=== PATIENT | male | born 1970 | race Caucasian/White ===

== ENCOUNTER 2016-12-05 14:30 | Emergency (ER) | payer OTHER ==
[~2016-12-05] VITALS: Ht 182.9 cm; Wt 137.0 kg
[2016-12-05 14:33] VITALS: Ht 182.9 cm; Wt 137.0 kg
[2016-12-05] MEDS ORDERED: GABA-526 PO (14:57)
[2016-12-05] MEDS ORDERED: BUPR-75 PO (14:58)
[2016-12-05] MEDS ORDERED: TRAZ100T15 PO (14:58)
[2016-12-05] MEDS ORDERED: CLON2TAB3 PO (14:59)
[2016-12-05] MEDS ORDERED: SOD CHLORIDE 0.9% 1,000 ML IV STA (15:25)
[2016-12-05] MEDS ORDERED: HYDROmorphONE 1 MG/ML SYG IV STA (15:25)
[2016-12-05] MEDS ORDERED: ONDANSETRON 4 MG INJ IV STA (15:25)
[2016-12-05 15:37] LABS: ADD SCAN DIFF NO
[2016-12-05 15:41] LABS: BASOPHILS % 0.3 % (0.0-2.0); EOSINOPHILS # 0.1 10^3/ul (0.0-0.5); EOSINOPHILS % 0.8 % (0.0-7.0); HEMATOCRIT 40.3 % (42.0-52.0); HEMOGLOBIN 14.9 g/dl (14.0-18.0); LYMPHOCYTES # 1.9 10^3/ul (0.8-2.9); LYMPHOCYTES % 31.7 % (15.0-51.0); MEAN CORPUSCULAR HEMOGLOBIN 36.2 pg (29.0-33.0); MEAN CORPUSCULAR VOLUME 97.8 fl (82.0-101.0); MEAN PLATELET VOLUME 9.7 fl (7.4-10.4); MONOCYTE # 0.4 10^3/ul (0.3-0.9); MONOCYTES % 6.8 % (0.0-11.0); NEUTROPHIL # 3.6 10^3/ul (1.6-7.5); NEUTROPHILS % 60.2 % (39.0-77.0); PLATELET COUNT 195 10^3/UL (140-415); RED BLOOD COUNT 4.12 10^6/ul (4.70-6.10); RED CELL DISTRIBUTION WIDTH 12.6 % (11.5-14.5)
[2016-12-05 15:44] LABS: INR 0.95; PROTIME 12.7 Sec (12.2-14.2)
--- NOTE | 2016-12-05 16:06 | RADRPT ---
PROCEDURE: CT Abdomen and Pelvis without contrast. CLINICAL INDICATION: Abdominal pain TECHNIQUE: CT scan of the abdomen and pelvis was performed on a multidetector high-resolution CT s canner without intravenous contrast. Coronal and sagittal reformatted images were obtained from the axial source images. Images were reviewed on a high-resolution PACS workstation. The total exam CTD I equals 24mGy and the total exam DLP equals 1396mGy-cm. One or more of the following dose reduction techniques were used: Automated exposure control, Adjustment of the mA and/or kV according to patie nt size, and/or use of iterative reconstruction technique. COMPARISON: None. FINDINGS: Evaluation of the solid organs is limited given the lack of intravenous contrast administration. The left subpleural atelectasis/scarring. Hypoattenuation of the liver. Status post cholecystectomy. No evidence of biliary dilatation. No pancreatic ductal dilatation. The spleen and adrenals are unremarkable. Retroperitoneal surgical c lips are seen. 4 mm hyperdense structure in the right kidney identified. No hydronephrosis. No dennis al or ureteral stone. No bowel obstruction. Appendix not visualized. There is wide-based laxity of the anterior abdomina l wall/ventral hernia with protrusion of the intra-abdominal fat anteriorly. The anterior abdominal wall defect measures 1.9 x 1.6 cm. No significant retroperitoneal lymphadenopathy, ascites or evidence of pneumoperitoneum. Fat containing left inguinal hernia. IMPRESSION: There is wide-based laxity of the anterior abdominal wall/ventral hernia with protrusion of the intr a-abdominal fat anteriorly. The anterior abdominal wall defect measures 1.9 x 1.6 cm. No evidence of bowel obstruction. 4 mm hyperdense structure in the right kidney may represent calcification or small hemorrhagic cyst. No renal or ureteral stone identified. No evidence of hydronephrosis. Hepatic steatosis. Status post cholecystectomy with extensive retroperitoneal surgical clips. Recommend correlation wit h surgical history. Fat containing left inguinal hernia. RPTAT: AA .Marcel Lazo MD, Date Time Electronically viewed and signed by .Marcel Lazo MD, MD on 12/05/2016 16:05 .T/
[2016-12-05 16:08] LABS: ALBUMIN 4.4 g/dl (3.3-4.9); ALBUMIN/GLOBULIN RATIO 1.1; BILIRUBIN,INDIRECT 0.9 mg/dl (0-1.1); BILIRUBIN,TOTAL 0.9 mg/dl (0.2-1.3); CALCIUM 9.3 mg/dl (8.4-10.2); CREATININE 0.79 mg/dl (0.61-1.24); POTASSIUM 3.9 mmol/L (3.5-5.1); TOTAL PROTEIN 8.4 g/dl (6.1-8.1)
[2016-12-05] MEDS ORDERED: OXYC-279 PO (16:40)
[2016-12-05] MEDS ORDERED: ONDA4TAB8 PO (16:40)
[2016-12-05] MEDS ORDERED: IBUP-1542 PO (16:40)
--- NOTE | 2016-12-05 21:34 | ERD ---
ER Documentation Chief Complaint Date/Time DATE: 12/05/16 TIME: 21:27 Chief Complaint "diffuse abdominal pain for past 4 days, -n/v/d, abdominal mesh 2 years ago HPI 46-year-old man complains of hypogastric abdominal pain for the last 4 days, he is status post herniorrhaphy and mesh placement many years ago. He denies fevers or chills, no hematuria, no weight loss, no melena or blood per rectum, no complaints of chest pain or shortness of breath. ROS All systems reviewed and are negative except as per history of present illness. Medications Home Meds Active Scripts Ondansetron Hcl* (Zofran*) 4 Mg Tablet, 4 MG PO Q8H Y for NAUSEA AND/OR VOMITING , #12 TAB Prov:EDUARDO MACK MD 12/05/16 Ibuprofen* (Ibuprofen*) 600 Mg Tablet, 600 MG PO Q8 for PAIN AND/OR INFLAMMATION , #30 TAB Prov:EDUARDO MACK MD 12/05/16 Oxycodone HCl/Acetaminophen (Percocet 5-325 mg Tablet) 1 Each Tablet, 1 EACH PO TID for PAIN LEVEL 6-10, #9 TAB Prov:EDUARDO MACK MD 12/05/16 Reported Medications Clonazepam* (Clonazepam*) 2 Mg Tablet, 2 MG PO BID, TAB 12/05/16 Trazodone Hcl* (Trazodone Hcl*) 100 Mg Tablet, 100 MG PO QHS, #30 TAB 12/05/16 Bupropion Hcl* (Wellbutrin XL*) 150 Mg Tab.sr.24h, 150 MG PO DAILY, TAB.SA 12/05/16 Gabapentin* (Gabapentin*) 600 Mg Tablet, 600 MG PO TID, #90 TAB 12/05/16 Allergies Allergies: Coded Allergies: No Known Allergy (Unverified , 12/05/16) PMhx/Soc Obesity, anxiety, herniorrhaphy with mesh placement History of Surgery: Yes (testicular CA, hernia repair with mesh , gall bladder) Hx Neurological Disorder: No Hx Respiratory Disorders: No Hx Cardiac Disorders: No Hx Alcohol Use: No Hx Substance Use: No Hx Tobacco Use: No Smoking Status: Never smoker FmHx Family History: No diabetes Physical Exam Vitals Vital Signs Date Time Temp Pulse Resp B/P Pulse Ox O2 Delivery O2 Flow Rate FiO2 12/05/16 14:33 97.6 98 18 131/78 97 Physical Exam GENERAL: Well-developed, well-nourished, in moderate pain, afebrile HEENT: Moist mucous membranes, pink conjunctiva, no cervical spine tenderness or step-off deformities, no goiter, no jaundice or icterus, extraocular movements intact without pain. No submandibular induration, and no pharyngeal erythema NEURO: Alert and oriented 3, cranial nerves II through XII intact bilaterally, pupils equal round reactive to light, no focal deficits or facial asymmetry, sensation intact distally Strength 5/5 in upper and lower extremities bilaterally CARDIAC: Regular rate and rhythm, no murmurs rubs or gallops LUNGS: Clear bilaterally no wheezing crackles or stridor ABDOMEN: Soft, protuberant abdomen with evidence of right mid abdominal hernia superficially tender to touch without guarding or rigidity SKIN: Warm and dry to touch, no abrasions, contusions, or hematomas, no lacerations, no ecchymosis, no target lesions, and without ulcers EXTREMITIES: No clubbing cyanosis or edema, calves are bilaterally symmetrical, no Homans sign, no popliteal cord sign. Distal pulses equal and bilateral PSYCH: Normal affect without agitation or irritability Result Diagram: 12/05/16 1300 12/05/16 1300 Results 24 hrs Laboratory Tests Test 12/05/16 13:00 White Blood Count 6.010^3/ul Red Blood Count 4.1210^6/ul Hemoglobin 14.9g/dl Hematocrit 40.3% Mean Corpuscular Volume 97.8fl Mean Corpuscular Hemoglobin 36.2pg Mean Corpuscular Hemoglobin Concent 37.0g/dl Red Cell Distribution Width 12.6% Platelet Count 10194^3/UL Mean Platelet Volume 9.7fl Neutrophils % 60.2% Lymphocytes % 31.7% Monocytes % 6.8% Eosinophils % 0.8% Basophils % 0.3% Nucleated Red Blood Cells % 0.0/100WBC Neutrophils # 3.610^3/ul Lymphocytes # 1.910^3/ul Monocytes # 0.410^3/ul Eosinophils # 0.110^3/ul Basophils # 0.010^3/ul Nucleated Red Blood Cells # 0.010^3/ul Prothrombin Time 12.7Sec Prothrombin Time Ratio 1.0 INR International Normalized Ratio 0.95 Sodium Level 141mmol/L Potassium Level 3.9mmol/L Chloride Level 110mmol/L Carbon Dioxide Level 24mmol/L Anion Gap 11 Blood Urea Nitrogen 9mg/dl Creatinine 0.79mg/dl Glucose Level 169mg/dl Calcium Level 9.3mg/dl Total Bilirubin 0.9mg/dl Direct Bilirubin 0.00mg/dl Indirect Bilirubin 0.9mg/dl Aspartate Amino Transf (AST/SGOT) 44IU/L Alanine Aminotransferase (ALT/SGPT) 85IU/L Alkaline Phosphatase 98IU/L Total Protein 8.4g/dl Albumin 4.4g/dl Globulin 4.00g/dl Albumin/Globulin Ratio 1.10 Lipase 47U/L Current Medications Medications (Trade) Dose Ordered Sig/Trice Route PRN Reason Start Time Stop Time Status Last Admin Dose Admin Sodium Chloride (NS) 1,000 ml @ 1,000 mls/hr Q1H STAT IV 12/05/16 15:25 12/05/16 16:24 DC 12/05/16 15:39 Hydromorphone HCl (Dilaudid) 1 mg ONCE STAT IV 12/05/16 15:25 12/05/16 15:26 DC 12/05/16 15:39 Ondansetron HCl (Zofran Inj) 4 mg ONCE STAT IV 12/05/16 15:25 12/05/16 15:26 DC 12/05/16 15:39 Procedures/MDM IV line was established patient was placed on residential monitor rhythm strip revealed a sinus rhythm at about 80 bpm with upright P and T waves. Patient was afebrile. I administered 1 L normal saline intravenously and hydromorphone 1 mg IV as well as Zofran [address] scan of the abdomen and pelvis was performed there was no bowel obstruction although there was a fat-containing hernia protrusion through the mesh. Please refer to radiologist dictation for full report. CBC and electrolytes are normal, liver function tests were normal. Repeat abdominal examination was performed by me after analgesics were administered and just prior to discharge. His belly is soft and nontender at this time he has no guarding no rigidity. Patient's vital signs are normal and he appears much more comfortable. I gave him the address and phone number to nearby surgeons for continued outpatient management. Differential diagnoses considered, included but not limited to acute coronary syndrome, pulmonary embolism, aortic dissection, abdominal aortic aneurysm, sepsis, stroke, meningitis, encephalitis, pneumonia, appendicitis, cholecystitis , bowel obstruction, pyelonephritis, nephrolithiasis, cystitis, as well as metabolic, hematologic, and electrolyte abnormalities. As well as abscess, cellulitis, fractures, and dislocations. Patient feels much better at this time, and vital signs are normal, symptoms have improved. I did give strict instructions to return to the ED if symptoms continue or worsen, patient will otherwise follow-up with primary care physician. Patient understood instructions and agreed to plan. Departure Diagnosis: Primary Impression: Hernia Additional Impression: Abdominal pain Abdominal location: generalized Qualified Code: R10.84 - Generalized abdominal pain Condition: Good Patient Instructions: Abdominal Pain, Hernia (Inguinal, Ventral, Umbilical) EDUARDO MACK MD December 05, 2016 21:34
== END 2016-12-06 00:19 | disposition home or self-care (01) ==
LOC: E/R 14:30
DX: K46.9 Unspecified abdominal hernia without obstruction or gangrene (principal); E66.9 Obesity, unspecified; R11.2 Nausea with vomiting, unspecified; Z68.41 Body mass index [BMI] 40.0-44.9, adult
CPT/HCPCS: 36415; 74176; 80053; 83690; 85025; 85610; 96374; 96375; J1170; J2405; J7030; Z7502